=== PATIENT | female | born 1995 | race Caucasian/White ===

== ENCOUNTER 2022-07-10 15:37 | Emergency (ER) | payer SELFPAY ==
[2022-07-10 16:07] VITALS: BP 107/51; PULSE 87; RESP 17; TEMP 36.7; O2SAT 99; BMI 24.9
--- NOTE | 2022-07-10 16:13 | EXP.UTC ---
Discharge Plan Disposition Patient Disposition: Home, Self-Care Condition: Good Prescriptions Prescriptions: New amoxicillin [amoxicillin] 875 mg tablet 875 mg PO Q12H Qty: 20 0RF methylprednisolone 4 mg Tablets,Dose Pack 4 mg PO DIRECTED Qty: 21 0RF nmwsqcohafvrrym-sqkeptbrl-EZ [Bromfed DM] 2-30-10 mg/5 mL Syrup 5 ml PO Q6H PRN (Reason: Cough) Qty: 240 0RF Referrals Follow up/Referrals: Provider,Referral, MD [Primary Care Provider] - See instructions Activity Restrictions/Add. Instructions Additional Instructions/Restrictions: Drink plenty of fluids. Take tylenol or ibuprofen for pain or fever. Take the medications as directed. Follow up with your regular doctor. GO TO THE ER FOR ANY WORSENING SYMPTOMS Her school exuse needs to count for 07/09 (Saturday) also because her symptoms began 2 days ago. Clinical Impressions Clinical Impression: Otitis media, Sinusitis Stand Alone Forms Stand Alone Forms: Work/School Release Instructions Patient Instructions: Middle Ear Infection Discharge ED Provider: Charlie Hernández [facility] General Stated complaint: Ear ache Mode of Arrival: Ambulatory Source of Information: Patient Time Seen by Provider: 07/10/22 16:13 Description of Symptoms (Recalled from Triage Doc. by RN): BILATERAL EAR PAIN HEENT Symptoms (Recalled from RN notes): Yes Resp Symptoms (Recalled from RN notes): No Skin Symptoms (Recalled from RN notes): No MS Symptoms (Recalled from RN notes): No Functional Status (Recalled from RN notes): NA History of Present Illness Provider Complaint: She states that for the past 2 days she has had bilateral ear pain. She denies chest congestion, but she has had sinus congestion too. She denies any fever/chills/body aches. Related Data Previous Rx's Medication Instructions Recorded amoxicillin 875 mg tablet 875 mg PO Q12H #20 tabs 07/10/22 xihrlyirgjrmroi-ujrjymrfamojdxt-LK 5 ml PO Q6H PRN Cough #240 mL 07/10/22 2 mg-30 mg-10 mg/5 mL oral syrup (Bromfed DM) methylprednisolone 4 mg tablets in 4 mg PO DIRECTED #21 tabs 07/10/22 a dose pack Allergies Allergy/AdvReac Type Severity Reaction Status Date / Time No Known Allergies Allergy Verified 07/10/22 16:10 Worker's Comp Is this a Worker's Comp case?: No PFSH PFSH Social History Smoking Status: Never smoker alcohol intake: never current occupational status: student Travel in the last 8 weeks: None ROS Obtained: Yes All systems reviewed & no additional complaints except as documented Constitutional Constitutional: Reports chills and Reports fever(s) Eyes Eyes: Denies eye discharge ENT Ears, Nose, Mouth, and Throat: Reports as per HPI Cardiovascular Cardiovascular: Denies chest pain and Denies dyspnea Respiratory Respiratory: Denies chest congestion, Reports cough, Denies dyspnea, Denies stridor and Denies wheezing Gastrointestinal Gastrointestingal: Reports nausea; Denies abdominal pain, constipation, cramping, diarrhea or vomiting Musculoskeletal Musculoskeletal: Denies arthralgias Integumentary/Breasts Skin/Breast: Denies rash Neurologic Neurologic: Denies paresthesias Allergic/Immunologic Allergic/Immunologic: Denies wheezing Physical Exam General General appearance: alert and in no apparent distress Head Head exam: atraumatic, normocephalic and normal inspection Eye Eye exam: Present normal appearance, PERRL and EOMI ENT ENT exam: Present mucous membranes moist and normal external ear exam Expanded ENT Exam TM/Canal exam: Bilateral TM: erythema and bulging Nose exam: Absent sinus tenderness Mouth exam: Present normal external inspection; Absent drooling Teeth exam: Present normal inspection Throat exam: Present tonsillar erythema, tonsillomegaly and tonsillar exudate Neck Neck exam: Present normal inspection, full ROM and trachea midline; Absent tenderness, meningismus or lymphadenopathy
[2022-07-10 16:37] VITALS: BP 107/51; PULSE 87; RESP 18; TEMP 36.7; O2SAT 99
== END 2022-07-10 16:39 | disposition home or self-care (01) ==
PROVIDERS: Emergency Provider Nurse Practitioner Family
DX: H66.90 Otitis media, unspecified, unspecified ear (principal); J32.9 Chronic sinusitis, unspecified
CPT/HCPCS: 99212; G0463

== ENCOUNTER 2024-12-04 15:08 | Emergency (ER) | payer OTHER, SELFPAY ==
[2024-12-04 15:10] VITALS: BP 99/71; PULSE 84; RESP 18; TEMP 36.9; O2SAT 99; BMI 24.0
--- NOTE | 2024-12-04 15:19 | XR_ITS ---
PROCEDURE INFORMATION: Exam: XR Lumbosacral Spine Exam date and time: 12/04/2024 4:07 PM Age: 28 years old Clinical indication: Low back pain TECHNIQUE: Imaging protocol: Radiologic exam of the lumbosacral spine. Views: 2 or 3 views. COMPARISON: No relevant prior studies available. FINDINGS: Bones/joints: Normal. No acute fracture. Normal alignment. Soft tissues: Unremarkable. IMPRESSION: No acute findings.
--- NOTE | 2024-12-04 15:21 | PC.NURSE ---
pt brought back to room. She reports mid L back pain that radiates proximal to her neck and distal to her L foot. pt reports the pain is sharp and 7/10. She took ibuprofen around 0900 with some relief. pt denies injury. no loss of bowel or bladder. LMP 1-2wks ago.
--- NOTE | 2024-12-04 15:21 | HMH.EDGENADL ---
Discharge Plan Disposition Patient Disposition: Home, Self-Care Condition: Good Prescriptions Prescriptions: No Action sertraline 100 mg tablet 150 mg PO DAILY Patient Comments: TAKE 1 & 1/2 (ONE & ONE-HALF) TABLETS BY MOUTH ONCE DAILY FOR TOTAL DOSE OF 150 MG DAILY Referrals Follow up/Referrals: Juan J Williamson DO [Staff Physician] - 3 days Activity Restrictions/Add. Instructions Additional Instructions/Restrictions: Rest. You may take acetaminophen and ibuprofen [id number] at home for symptomatic relief. Please do not take ibuprofen for 8 hours after ED visit since you were given Toradol injection. Please call the above number to establish with PCP. Return to the ED for worsening of condition. Clinical Impressions Clinical Impression: Back pain Qualifiers: Back pain location: low back pain Chronicity: acute Back pain laterality: left Sciatica presence: with sciatica Sciatica laterality: sciatica of left side Qualified Code(s): M54.42 - Lumbago with sciatica, left side Back strain Qualifiers: Encounter type: initial encounter Qualified Code(s): S39.012A - Strain of muscle, fascia and tendon of lower back, initial encounter Instructions Patient Instructions: DI for Low Back Pain Print Language Print Language: Khmer Discharge ED Provider: Erin Queen General Adult HPI <Mar Bhatia APRN - Last Filed: 12/04/24 16:51> General Chief complaint: Back Pain/Injury Stated complaint: Middle back pain left side Time Seen by Provider: 12/04/24 15:19 Mode of Arrival: Ambulatory Source of Information: Patient Limitations: No Limitations Description of Symptoms (Recalled from ER Triage Doc. by RN): Patient presents ambulatory to triage. Patient states she went to Urgent Care. Reports she was advised to come to the ED as there was not X-ray capabilities at Urgent Care. States she had an acute onset of back pain. Patient states she has been having the pain x3 days. States, It's in the middle of my left side. States, From my neck to my left foot, it just feels stiff. 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 States she has been taking Ibuprofen. States her last dose was this morning at 0900. States despite treatment, the pain continues get worse. History of Present Illness HPI narrative: 28-year-old female presents to the ED with complaints of left lower back pain that radiates down her left leg. Patient states she went to [facility] who advised her to come to the ED for further evaluation. Patient denies any recent fall or trauma to the area. Denies bowel or bladder incontinence. Related Data Home Medications ?Medication ?Instructions ?Recorded ?Confirmed sertraline 100 mg tablet 150 mg PO DAILY 12/04/24 12/04/24 Allergies Allergy/AdvReac Type Severity Reaction Status Date / Time No Known Allergies Allergy Verified 12/04/24 15:24 PFSH <Mar Bhatia APRN - Last Filed: 12/04/24 16:51> [facility] Disclaimer: The information contained in this section may have been updated after the patient was seen, as this information can be updated by other users. Social History (Updated 07/10/22 @ 16:38 by Charlie Hernández APRN) Smoking Status: Current every day smoker alcohol intake: never current occupational status: student Travel in the last 8 weeks: None Have you lived/traveled outside [place] in past 30 days?: No Contact w/someone who lives/traveled outside US past 30 days?: No Exposure to someone with infectious disease in past 14 days?: No Do you have a fever (greater than 100.4 F or 38 C)?: No Have you tested positive for COVID-19: No Exposed to someone with COVID-19 in past 14 days?: No Do you have a sore throat?: No Do you have a cough?: No Do you have any weakness?: No Do you have any diarrhea?: No Are you experiencing any unusual bleeding?: No Do you have any muscle aches/pain?: No Do you have any abdominal pain?: No Are you experiencing loss of taste or smell?: No <Mar Bhatia APRN - Last Filed: 12/04/24 16:51> ROS Obtained: Yes Systems reviewed as appropriate & no additional complaints except as documented Physical Exam <Mar Bhatia APRN - Last Filed: 12/04/24 16:51> General General appearance: alert and in no apparent distress Head Head exam: atraumatic and normocephalic Eye Eye exam: Present normal appearance and PERRL ENT ENT exam: Present normal exam Neck Neck exam: Present normal inspection Chest Chest inspection: Present normal inspection and symmetric chest wall rise; Absent tenderness Respiratory Respiratory exam: Present normal lung sounds bilaterally Cardiovascular Cardiovascular exam: Present regular rate Abdominal Exam Abdominal exam: Present soft and normal bowel sounds; Absent tenderness Extremities Exam Extremities exam: Present normal inspection and full ROM Back Exam Back exam: Present full ROM and paraspinal tenderness (Left lower); Absent vertebral tenderness Neurological Exam Neurological exam: Present alert and oriented X3 Psychiatric Psychiatric exam: Present normal affect and normal mood Skin Skin exam: Present warm and dry Medical Decision Making <Mar Bhatia APRN - Last Filed: 12/04/24 16:51> Medical Records Screening: Per USPSTF and CDC recommendations, given the prevalence of disease in our region, it is our hospital?s policy to screen for HIV and viral Hepatitis for all patients aged 18 and over and those with ongoing risk factors. Yahir Inquiry Pt receiving controlled substance: No Yahir was queried for this patient: No Vital Signs: 12/04/24 15:10 12/04/24 16:47 Temperature 98.4 F 98.2 F Temperature Source Temporal Artery Scan Pulse Rate 79 Pulse Rate [Radial] 84 Respiratory Rate 18 16 Blood Pressure 103/65 L Blood Pressure [R Arm] 99/71 L Blood Pressure Mean [R Arm] 80 Blood Pressure Source [R Arm] Automatic Cuff 02 Sat by Pulse Oximetry 99 Oxygen Delivery Method Room Air Lab Data Lab Results 12/04/24 15:27: Urine Color Yellow, Urine Appearance Clear, Urine pH 7.0, Ur Specific [place] 1.020, Urine Protein Negative, Urine Glucose (UA) Negative, Urine Ketones Negative, Urine Blood Negative, Urine Nitrate Negative, Urine Bilirubin Negative, Urine Urobilinogen 0.2, Ur Leukocyte Esterase Negative, Urine RBC None, Urine WBC 3-5, Ur Squamous Epith Cells 10-20, Urine Bacteria Trace, Urine HCG, Qual Negative Orders (Tests/Meds): ED MEDICATIONS Discontinued Medications Generic Name Dose Route Start Last Admin Trade Name Freq PRN Reason Stop Dose Admin Acetaminophen 1,000 mg 12/04/24 16:20 12/04/24 16:26 Acetaminophen 500mg Tab PO 12/04/24 16:21 1,000 mg ONCE ONE Administration Ketorolac Tromethamine 15 mg 12/04/24 15:19 12/04/24 15:25 Ketorolac 30mg/Ml Vial IM 12/04/24 15:20 15 mg ONCE ONE Administration Lidocaine 1 each 12/04/24 15:30 12/04/24 15:25 Lidocaine 5% Transdermal Patch TP 01/03/25 15:29 1 each Q24H ERICA Administration Lidocaine 1 each 12/04/24 15:30 12/04/24 15:35 Lidocaine 5% Transdermal Patch TP 12/04/24 15:31 Not Given ONCE ONE Methocarbamol 500 mg 12/04/24 21:00 12/04/24 15:25 Methocarbamol 500mg Tablet PO 01/03/25 20:59 500 mg BID ERICA Administration Methocarbamol 500 mg 12/04/24 15:30 12/04/24 15:35 Methocarbamol 500mg Tablet PO 12/04/24 15:31 Not Given ONCE ONE ORDERS Category Date Time Status XR lumbar spine 2-3V Stat Exams 12/04/24 15:19 Completed Urinalysis and Microscopic Stat Lab 12/04/24 15:27 Completed Urine , HCG Qual. Stat Lab 12/04/24 15:27 Completed Medical Decision Narrative: In summary, patient is a 28-year-old female no significant PMHx who presents to the ED for left-sided lower back pain that radiates posterior left leg and up the left side of her back x 2 days. Patient initially went to [facility] where they advised her she needed an x-ray and sent her to the ED. Patient denies any trauma. Denies issues with previous back pain. Upon initial exam, patient is alert, oriented and cooperative. Patient is hemodynamically stable. Physical exam remarkable for left paraspinal musculature tenderness, no spinal tenderness. Denies fever, chills, body ache, chills, chest pain, shortness of breath, headache, visual disturbances, saddle anesthesia, incontinence of bowel or bladder, dysuria, diarrhea. Denies recent injections. Denies any recent surgery. Denies previous back surgery. Differential diagnosis includes muscular strain, fracture, renal calculi, infectious process, among others Initial workup will be conducted with imaging and urinalysis. Initial inventions include Lidoderm, Robaxin, Toradol IM for pain management. Initial workup reviewed by me. Urine unremarkable for any infectious process. Patient states her pain is still present, will administer acetaminophen 1000 mg. I considered additional testing but deferred due to normal workup. I informally interpreted the imaging as no acute findings on the lumbar spine. See final read. Upon repeat evaluation, patient states that her pain has not improved, remains a 6 out of 10. I offered additional pain medications which patient declined. Patient is requesting be discharged home at this time. She were ambulatory in the ED. Able to tolerate p.o. I discussed with patient that she can use acetaminophen and ibuprofen [id number] for symptomatic relief. Advised her not to take ibuprofen for 8 hours after ED visit due to Toradol. We discussed physical therapy. Advised her to call the number for a PCP that accepts her insurance. We discussed return precautions to the ED and patient verbalized understanding. I was consulted by the FABIEN, and we discussed the complexity of problems being addressed. I approved the treatment and management plan for this patient's care in the emergency department, thus performing a substantial portion of the medical decision making. Erin Queen MD <Erin Queen MD - Last Filed: 12/04/24 18:24> Vital Signs: 12/04/24 15:10 12/04/24 16:47 Temperature 98.4 F 98.2 F Temperature Source Temporal Artery Scan Pulse Rate 79 Pulse Rate [Radial] 84 Respiratory Rate 18 16 Blood Pressure 103/65 L Blood Pressure [R Arm] 99/71 L Blood Pressure Mean [R Arm] 80 Blood Pressure Source [R Arm] Automatic Cuff 02 Sat by Pulse Oximetry 99 Oxygen Delivery Method Room Air Lab Data Lab Results 12/04/24 15:27: Urine Color Yellow, Urine Appearance Clear, Urine pH 7.0, Ur Specific [place] 1.020, Urine Protein Negative, Urine Glucose (UA) Negative, Urine Ketones Negative, Urine Blood Negative, Urine Nitrate Negative, Urine Bilirubin Negative, Urine Urobilinogen 0.2, Ur Leukocyte Esterase Negative, Urine RBC None, Urine WBC 3-5, Ur Squamous Epith Cells 10-20, Urine Bacteria Trace, Urine HCG, Qual Negative Orders (Tests/Meds): ED MEDICATIONS Discontinued Medications Generic Name Dose Route Start Last Admin Trade Name Freq PRN Reason Stop Dose Admin Acetaminophen 1,000 mg 12/04/24 16:20 12/04/24 16:26 Acetaminophen 500mg Tab PO 12/04/24 16:21 1,000 mg ONCE ONE Administration Ketorolac Tromethamine 15 mg 12/04/24 15:19 12/04/24 15:25 Ketorolac 30mg/Ml Vial IM 12/04/24 15:20 15 mg ONCE ONE Administration Lidocaine 1 each 12/04/24 15:30 12/04/24 15:25 Lidocaine 5% Transdermal Patch TP 01/03/25 15:29 1 each Q24H ERICA Administration Lidocaine 1 each 12/04/24 15:30 12/04/24 15:35 Lidocaine 5% Transdermal Patch TP 12/04/24 15:31 Not Given ONCE ONE Methocarbamol 500 mg 12/04/24 21:00 12/04/24 15:25 Methocarbamol 500mg Tablet PO 01/03/25 20:59 500 mg BID ERICA Administration Methocarbamol 500 mg 12/04/24 15:30 12/04/24 15:35 Methocarbamol 500mg Tablet PO 12/04/24 15:31 Not Given ONCE ONE ORDERS Category Date Time Status XR lumbar spine 2-3V Stat Exams 12/04/24 15:19 Completed Urinalysis and Microscopic Stat Lab 12/04/24 15:27 Completed Urine , HCG Qual. Stat Lab 12/04/24 15:27 Completed Medical Decision Narrative: In summary, patient is a 28-year-old female no significant PMHx who presents to the ED for left-sided lower back pain that radiates posterior left leg and up the left side of her back x 2 days. Patient initially went to [facility] where they advised her she needed an x-ray and sent her to the ED. Patient denies any trauma. Denies issues with previous back pain. Upon initial exam, patient is alert, oriented and cooperative. Patient is hemodynamically stable. Physical exam remarkable for left paraspinal musculature tenderness, no spinal tenderness. Denies fever, chills, body ache, chills, chest pain, shortness of breath, headache, visual disturbances, saddle anesthesia, incontinence of bowel or bladder, dysuria, diarrhea. Denies recent injections. Denies any recent surgery. Denies previous back surgery. Differential diagnosis includes muscular strain, fracture, renal calculi, infectious process, among others Initial workup will be conducted with imaging and urinalysis. Initial inventions include Lidoderm, Robaxin, Toradol IM for pain management. Initial workup reviewed by me. Urine unremarkable for any infectious process. Patient states her pain is still present, will administer acetaminophen 1000 mg. I considered additional testing but deferred due to normal workup, resolution of symptoms. I informally interpreted the imaging as no acute findings on the lumbar spine. See final read. Upon repeat evaluation, patient had an acceptable resolution of symptoms. They were ambulatory in the ED. Able to tolerate p.o. Given this [patient is appropriate for discharge at this time will be discharged with a prescription for? The case was discussed with hospital medicine regarding management and they will admit the patient to their service for continued evaluation at this time? Etc.] I was consulted by the FABIEN, and we discussed the complexity of problems being addressed. I approved the treatment and management plan for this patient's care in the emergency department, thus performing a substantial portion of the medical decision making. Erin Queen MD Critical Care <Mar Bhatia, EXERCISE EQUIPMENT REPAIR TECHNICIAN - Last Filed: 12/04/24 16:51> Critical Care Time Critical Care Time: No
[2024-12-04] MEDS: METHOCARBAMOL 500MG TABLET 500 MG PO (15:25)
[2024-12-04] MEDS: KETOROLAC 30MG/ML VIAL 15 MG IM (15:25)
[2024-12-04] MEDS: LIDOCAINE 5% TRANSDERMAL PATCH 1 EACH TP (15:25)
[2024-12-04 15:32] LABS: Microscopic, Urine URINE MICROSCOPIC (MICROSCOPIC)
[2024-12-04 15:39] LABS: Appearance,Urine CLEAR (Clear); Bilirubin,Urine Negative (Negative); Blood, Urine Negative (Negative); Color,Urine YELLOW (Yellow); Glucose,Urine (UA) Negative (Negative); Ketones,Urine Negative (Negative); Leukocyte Esterase,Urine Negative (Negative); Nitrate,Urine Negative (Negative); Protein,Urine Negative (Negative); Urobilinogen,Urine 0.2 EU/dl (0.2)
[2024-12-04 15:41] LABS: Urine Pregnancy, HCG Qual. Negative (Negative)
--- NOTE | 2024-12-04 16:10 | PC.NURSE ---
rounded on patient and no change in her pain. MAINTENANCE REPRESENTATIVE aware.
[2024-12-04 16:17] LABS: Bacteria,Urine Trace /lpf
[2024-12-04] MEDS: ACETAMINOPHEN 500MG TAB 1000 MG PO (16:26)
[2024-12-04 16:47] VITALS: BP 103/65; PULSE 79; RESP 16; TEMP 36.8; O2SAT 100
== END 2024-12-04 16:51 | disposition home or self-care (01) ==
PROVIDERS: Nurse Practitioner; Emergency Provider Student in an Organized Health Care Education/Training Program
DX: M54.42 Lumbago with sciatica, left side (principal); S39.012A Strain of muscle, fascia and tendon of lower back, initial encounter; M79.605 Pain in left leg; Z72.0 Tobacco use
CPT/HCPCS: 72100; 81001; 81025; 96372; 99283; J1885